=== PATIENT | male | born 1995 | race Caucasian/White ===

== ENCOUNTER 2016-04-09 02:28 | Emergency (ER) | payer OTHER ==
[~2016-04-09] VITALS: Ht 167.6 cm; Wt 86.2 kg
[~2016-04-09 02:28] MED LIST: ALBUTEROL0.09 MG/A1 INH; PERCOCET 5-3251 EACH PO; PROAIR HFA0.09 MG/Ac PO
[2016-04-09 03:12] VITALS: BP 148/75
--- NOTE | 2016-04-09 05:16 | ED GI/GU/ABDOMINAL COMPLAINT ---
History of Present Illness General Chief Complaint: Male Genitourinary Problems Stated Complaint: LT SIDE FLANK PAIN INTO TESTICLES Source: patient Exam Limitations: no limitations Vital Signs & Intake/Output Vital Signs & Intake/Output Vital Signs Date Time Temp Pulse Resp B/P Pulse O2 O2 Flow FiO2 Ox Delivery Rate 04/09 0312 97.8 90 18 148/75 97 Room Air Allergies Coded Allergies: venom-honey bee (bee venom (honey bee)) (Intermediate, SWELLING 07/20/15) Triage Note: PT TO ED C/O LEFTLOW BACK PAIN THATMOVEDTO FRONT AND DOWN TO LEFT TESTICLE, STARTED AT 10 PM. C/O URINARY FREQUENCY. Triage Nurses Notes Reviewed? yes HPI: Patient presents for evaluation of a severe sharp intermittent left flank pain that radiates to the groin that began abruptly on Sunday. Nothing seems to make it feel better. Patient denies any prior episodes. He denies fever or dysuria. (KRISTIAN ALEJANDRA,MARY ANNE Harkins) Reconcile Medications Albuterol Sulfate (Proair Hfa) 0.09 MG/Actuation DORINDA 1-2 PUF PO Q4-6 PRN PRN ASTHMA (Reported) Albuterol Sulfate (Albuterol Sulfate Hfa) 90 MCG HFA.AER.AD 2-4 PUFF INH Q4-6 PRN PRN SHORTNESS OF BREATH 90 MCG PER PUFF Ibuprofen 800 MG TABLET 1 TAB PO Q6PRN PRN pain Oxycodone HCl/Acetaminophen (Percocet 5-325 MG Tablet) 1 EACH TABLET 1-2 TAB PO Q6P PRN PAIN Oxycodone HCl/Acetaminophen (Percocet 5-325 MG Tablet) 5 MG-325 MG TABLET 1 TAB PO BID severe pain Tamsulosin HCl (Flomax) 0.4 MG CAP.ER.24H 1 CAP PO DAILY kidney stone (CARLOS ALEJANDRA,FACUNDO) Past History Travel History Traveled to [place] past 21 day No Medical History Neurological: NONE EENT: NONE Cardiovascular: NONE Respiratory: asthma Gastrointestinal: NONE Hepatic: NONE Renal: NONE Musculoskeletal: NONE Psychiatric: NONE Endocrine: NONE Blood Disorders: NONE Cancer(s): NONE DRIVER OPERATOR/Reproductive: NONE Surgical History Surgical History: non-contributory Psychosocial History What is your primary language Malay Tobacco Use: Current Not Daily Daily Tobacco Use Amount/Type: => 5 Cigarettes daily ETOH Use: occasional use Illicit Drug Use: denies illicit drug use (KRISTIAN ALEJANDRA,MARY ANNE Harkins) Medical History Any Pertinent Medical History? see below for history Family History Hx Contributory? No (FACUNDO GONZALEZ MD) Review of Systems Review of Systems Constitutional: Reports: no symptoms. EENTM: Reports: no symptoms. Respiratory: Reports: no symptoms. Cardiovascular: Reports: no symptoms. GI: Reports: see HPI, abdominal pain. Genitourinary: Reports: no symptoms. Musculoskeletal: Reports: no symptoms. Skin: Reports: no symptoms. Neurological/Psychological: Reports: no symptoms. Hematologic/Endocrine: Reports: no symptoms. Immunologic/Allergic: Reports: no symptoms. All Other Systems: Reviewed and Negative (FACUNDO GONZALEZ MD) Physical Exam Physical Exam Gastrointestinal: SEE BELOW Comments: Found asleep upon my arrival but easily arousable. Gen.: Well-nourished, well-developed, no acute respiratory distress. Head: Normocephalic, atraumatic. Eyes: Normal inspection bilaterally Ears: Normal inspection bilaterally Nose: Normal inspection Throat/mouth : Moist mucosa Neck: Supple, full range of motion, no goiter Heart: Regular rate and rhythm, no murmurs rubs or gallops Lungs: Clear to auscultation bilaterally with normal air entry Chest: Nontender Back: Normal range of motion, L CVAT Abdomen: Soft, nontender, nondistended, normal bowel sounds Extremities: Normal range of motion grossly, equal radial pulses, no cyanosis clubbing or edema Neurologic: Cranial nerves grossly intact, speech is clear Skin: warm and dry Psychiatric: Calm, cooperative, no apparent delusions or hallucinations (KRISTIAN ALEJANDRA,MARY ANNE Harkins) Physical Exam General Appearance: well developed/nourished, alert, awake, anxious, mild distress Head: atraumatic, normal appearance Eyes: Bilateral: normal appearance, PERRL, EOMI, normal inspection. Ears, Nose, Throat, Mouth: hearing grossly normal, moist mucous membrane Neck: normal inspection, supple, full range of motion, normal alignment Respiratory: normal breath sounds, chest non-tender, no respiratory distress, quiet respiration, lungs clear Cardiovascular: regular rate/rhythm, normal peripheral pulses, norml femoral pulses equa Peripheral Pulses: 4+ carotid (R), 4+ carotid (L) Male Genitals: normal genitalia Back: normal inspection, normal range of motion Extremities: normal range of motion, no ligament instability Neurologic/Psych: no motor/sensory deficits, awake, alert, oriented x 3, normal gait, normal mood/affect Skin: intact, normal color, warm/dry Core Measures ACS in differential dx? No Severe Sepsis Present: No Septic Shock Present: No (FACUNDO GONZALEZ MD) Progress Plan of Care: Orders Procedure Date/time Status LIPASE 04/09 050 Complete COMPREHENSIVE METABOLIC PANEL 04/09 050 Complete CBC WITHOUT DIFFERENTIAL 04/09 050 Complete URINALYSIS 04/09 0316 Complete Current Medications Sig/Kahlil Start time Last Medication Dose Stop Time Status Admin Ketorolac 30 MG ONCE ONE 04/09 529 CAN Tromethamine 04/09 05 (Toradol) Laboratory Tests 04/09/16 0600: Anion Gap 9, Estimated GFR > 60, BUN/Creatinine Ratio 16.7, Glucose 93, Calcium 10.4 H, Total Bilirubin 0.7, AST 31, ALT 67, Alkaline Phosphatase 100, Total Protein 7.2, Albumin 4.4, Globulin 2.8, Albumin/Globulin Ratio 1.6, Lipase 45, CBC w Diff NO MAN DIFF REQ, RBC 5.80, MCV 87.7, MCH 29.8, RDW 12.5, MPV 7.9, Gran % 65.1, Lymphocytes % 27.0, Monocytes % 6.3, Eosinophils % 1.2, Basophils % 0.4, Absolute Granulocytes 9.0 H, Absolute Lymphocytes 3.8 H, Absolute Monocytes 0.9 H, Absolute Eosinophils 0.2, Absolute Basophils 0.1, PUBS MCHC 34.0 04/09/16 0320: Urine Color YEL, Urine Clarity HAZY H, Urine pH 7.5, Ur Specific Sanders 1.010, Urine Protein NEG, Urine Ketones NEG, Urine Nitrite NEG, Urine Bilirubin NEG, Urine Urobilinogen 0.2, Ur Leukocyte Esterase NEG, Ur Microscopic SEDIMENT EXAMINED, Urine RBC 25-50 H, Ur Epithelial Cells RARE, Urine Hemoglobin LARGE H, Urine Glucose NEG Differential Diagnosis: ureterolithiasis, UTI/pyelo Diagnostic Imaging: Viewed by Me: CT Scan. Discussed w/RAD: CT Scan. Radiology Impression: mild hydro, 3mm uvj stone Initial ED EKG: none (FACUNDO GONZALEZ MD) Departure Departure Condition: Stable Departure Forms: Customer Survey General Discharge Information (KRISTIAN ALEJANDRA,MARY ANNE Harkins) Departure Time of Disposition: 802 Disposition: HOME OR SELF CARE Clinical Impression Primary Impression: Renal colic Referrals: ANNAMARIE ALEJANDRA,ROBERT Call for urology follow up JACKIE FERNÁNDEZ DO (PCP/Family) Prescriptions: Current Visit Scripts Ibuprofen 1 TAB PO Q6PRN PRN pain #50 TAB Oxycodone HCl/Acetaminophen (Percocet 5-325 MG Tablet) 1 TAB PO BID #10 TAB Tamsulosin HCl (Flomax) 1 CAP PO DAILY #15 CAP (CARLOS ALEJANDRA,FACUNDO)
[2016-04-09 06:06] LABS: ABSOLUTE BASOPHIL COUNT 0.1 /CUMM (0.0-0.2); ABSOLUTE EOSINOPHIL COUNT 0.2 /CUMM (0.0-0.7); ABSOLUTE LYMPH COUNT 3.8 /CUMM (1.2-3.4); ABSOLUTE MONOCYTE COUNT 0.9 /CUMM (0.10-0.60); BASOPHIL % 0.4 % (0.0-2.0); EOSINOPHIL % 1.2 % (0-5); GRANULOCYTE % 65.1 % (42.2-75.2); HEMATOCRIT 50.8 % (42-52); MEAN CORPUSCULAR HGB 29.8 PG (27.0-31.0); MEAN CORPUSCULAR VOLUME 87.7 FL (80.0-94.0); MEAN PLATELET VOLUME 7.9 FL (7.4-10.4); PLATELET COUNT 253 /CUMM (130-400); RBC DISTRIBUTION WIDTH 12.5 % (11.5-14.5); WHITE BLOOD CELL COUNT 13.9 /CUMM (4.8-10.8)
--- NOTE | 2016-04-09 07:52 | CT SCAN REPORT ---
EXAMINATION: CT ABDOMEN AND PELVIS WITHOUT CONTRAST CLINICAL INFORMATION: Left flank pain and hematuria. COMPARISON: None. TECHNIQUE: Multidetector volumetric imaging was performed from the superior aspect of the liver through the pubic symphysis. Sagittal and coronal reformatted images were obtained on the technologist's workstation. DLP: 519.40 mGy-cm. FINDINGS: LUNG BASES: The visualized lung bases are unremarkable. LIVER, GALLBLADDER, AND BILIARY TREE: The liver is normal in size, shape, and attenuation. No focal hepatic lesion or biliary ductal dilatation is present. The gallbladder is unremarkable with no evidence of radiopaque gallstones, gallbladder wall thickening, or obvious pericholecystic inflammatory changes. PANCREAS: Unremarkable. SPLEEN: Unremarkable. ADRENAL GLANDS: Unremarkable. KIDNEYS AND URETERS: The kidneys are normal in size, shape, and attenuation. There is mild left hydronephroureter secondary to an approximately 3 mm calculus at the ureterovesicular junction (2:82). No right hydronephroureter or ureteric calculus is seen. No perinephric stranding. BLADDER: Unremarkable. GASTROINTESTINAL TRACT: The small and large bowel are unremarkable. The appendix is unremarkable. ABDOMINAL WALL: There is a small fat-containing umbilical hernia. LYMPH NODES: Normal. VASCULAR: Unremarkable. PELVIC VISCERA: The prostate and seminal vesicles are unremarkable. OSSEOUS STRUCTURES: Unremarkable. IMPRESSION: Mild left hydronephroureter is seen secondary to an approximately 3 mm calculus at the left ureterovesicular junction. There are no further urinary calculi seen.
[2016-04-09] MEDS ORDERED: FLOMAX0.4 M1 PO (08:05)
[2016-04-09] MEDS ORDERED: PERCOCET 5-3251 EACH PO (08:05)
[2016-04-09] MEDS ORDERED: IBUPROFEN800 M1 PO (08:05)
== END 2016-04-09 08:31 ==
LOC: ERH 02:28
PROVIDERS: Emergency Medicine
DX: N23 Unspecified renal colic (principal)
CPT/HCPCS: 74176; 81001; 96372; J1885